=== PATIENT | male | born 1970 | race Caucasian/White ===

== ENCOUNTER 2016-09-13 20:15 | Emergency (ER) | payer MEDICARE, MEDICAID ==
[~2016-09-13] VITALS: Ht 185.4 cm; Wt 88.0 kg
[2016-09-13 21:38] LABS: HEMATOCRIT. 39.9 % (42.0-52.0); HEMOGLOBIN. 13.9 g/dL (14.0-18.0); MEAN CORPUSCULAR HEMOGLOBIN 35.5 pg (28.0-32.0); MEAN CORPUSCULAR HGB CONC 34.8 g/dL (31.0-37.0); RED BLOOD CELL COUNT 3.91 mill/uL (4.7-6.1); RED CELL DISTRIBUTION WIDTH 18.6 % (11.6-14.6); WHITE BLOOD COUNT 3.8 x1000/uL (4.5-11.0)
[2016-09-13 21:40] LABS: *AMPHETAMINES SCREEN URINE NEGATIVE (NEGATIVE); *BARBITURATES SCREEN URINE NEGATIVE (NEGATIVE); *BENZODIAZEPINES SCREEN URINE PRESUMTIVE POSITIVE (NEGATIVE); *COCAINE SCREEN URINE NEGATIVE (NEGATIVE); CANNABINOID URINE SCREEN NEGATIVE (NEGATIVE); ECSTASY MDMA SCREEN URINE NEGATIVE (NEGATIVE); METHADONE URINE SCREEN NEGATIVE (NEGATIVE); OPIATES URINE SCREEN NEGATIVE (NEGATIVE); PHENCYCLIDINE URINE SCREEN NEGATIVE (NEGATIVE)
[2016-09-13 21:44] LABS: DIFFERENTIAL COMMENT 1
[2016-09-13 21:48] LABS: ACETAMINOPHEN < 2 ug/mL (10-30); ANION GAP 15; CALCIUM 7.9 mg/dL (8.5-10.1); CARBON DIOXIDE 27 mEq/L (21-32); CHLORIDE 110 mEq/L (98-107); INDEX HEMOLYSI 1 (1-3); INDEX ICTERIC 3 (1-4); INDEX LIPEMIC 1 (1-3); UREA NITROGEN BLOOD 9 mg/dL (7-21); eGFR > 60 mL/min (>60)
[2016-09-13 21:53] LABS: ETHANOL BLOOD 332 mg/dL
[2016-09-13 22:16] LABS: MEAN PLATELET VOLUME 8.6 fl (7.4-10.4); PLATELET 28 x1000/uL (130-400)
[2016-09-13 22:26] LABS: ATYPICAL LYMPHOCYTES 3
[2016-09-13 22:27] LABS: ANISOCYTOSIS 1+; PLATELET ESTIMATE MARKEDLY DECREASED
[2016-09-13] MEDS ORDERED: SODIUM CHLORIDE 0.9% 1,000 ML IV ONE (23:15)
[2016-09-13] MEDS ORDERED: LORAZEPAM 2MG/ML CPJ IV ONE (23:15)
[2016-09-14 01:05] VITALS: BP 122/70
== END 2016-09-14 01:07 | disposition home or self-care (01) ==
LOC: ER 20:16
DX: F10.129 Alcohol abuse with intoxication, unspecified (principal); J45.909 Unspecified asthma, uncomplicated; K75.9 Inflammatory liver disease, unspecified; K74.60 Unspecified cirrhosis of liver; F17.200 Nicotine dependence, unspecified, uncomplicated
CPT/HCPCS: 36415; 80048; 80305; 80307; 80329; 85025; 96361; 96374; 99284; G0482; J2060; J7030

== ENCOUNTER 2017-04-28 13:27 | Emergency (ER) | payer MEDICARE, MEDICAID ==
[~2017-04-28] VITALS: Ht 175.3 cm; Wt 81.0 kg
[2017-04-28 13:35] VITALS: BP 116/84
== END 2017-04-28 17:50 | disposition left against medical advice (07) ==
LOC: ER 13:32
DX: R06.02 Shortness of breath (principal); Z53.21 Procedure and treatment not carried out due to patient leaving prior to being seen by health care provider

== ENCOUNTER 2019-04-14 20:04 | Inpatient (IN) | payer MEDICARE, MEDICAID ==
[~2019-04-14] VITALS: Ht 172.7 cm; Wt 53.2 kg
[2019-04-14] MEDS ORDERED: SODIUM CHLORIDE 0.9% 1,000 ML IV ONE (20:28)
[2019-04-14 21:24] LABS: BG BASE EXCESS -8.2 mmol/L (-2.0-2.0); BG CARBOXYHEMOGLOBIN 3.4 % (0.5-1.5); BG DEOXYHEMOGLOBIN 8.6 % (0.0-5.0); BG FRACTION INSPIRED OXYGEN 21; BG METHEMOGLOBIN 0.2 % (0.0-1.5); BG OXYGEN SATURATION 91.1 % (92.0-98.5); BG OXYHEMOGLOBIN 87.8 % (94.0-97.0); BG PCO2 29.1 mmHg (35.0-45.0); BG PH 7.357 (7.350-7.450); BG PO2 64.6 mmHg (75.0-100.0); BG SAMPLE SITE RIGHT RADIAL; BG TOTAL HEMOGLOBIN 12.4 g/dL (12.0-18.0); BG VENT MODE ROOM AIR
[2019-04-14 21:54] LABS: HEMATOCRIT. 35.5 % (42.0-52.0); HEMOGLOBIN. 12.3 g/dL (14.0-18.0); MEAN CORPUSCULAR HEMOGLOBIN 41.5 pg (28.0-32.0); MEAN CORPUSCULAR VOLUME 120.4 fL (80.0-94.0); MEAN PLATELET VOLUME 8.7 fl (7.4-10.4); RED BLOOD CELL COUNT 2.95 mill/uL (4.7-6.1); RED CELL DISTRIBUTION WIDTH 17.1 % (11.6-14.6)
[2019-04-14 21:56] LABS: CHLORIDE 98 mEq/L (98-107)
[2019-04-14 22:00] LABS: ETHANOL BLOOD < 10 mg/dL; PLATELET 22 x1000/uL (130-400)
[2019-04-14 22:14] LABS: PLATELET ESTIMATE MARKEDLY DECREASED
[2019-04-14] MEDS ORDERED: MORPHINE SULFATE 4 MG/ML CPJ (NOT FOR IM USE) IV ONE (22:15)
[2019-04-14] MEDS ORDERED: ALBUMIN HUMAN 25GM/500ML (5%) IV ONE (22:45)
[2019-04-14] MEDS ORDERED: ONDANSETRON HCL 4MG/2ML INJ IV PRN (23:15)
[2019-04-14] MEDS ORDERED: LORAZEPAM 0.5MG TABLET PO PRN (23:15)
[2019-04-15] VITALS (10 sets, daily range): BP systolic 91–109; BP diastolic 53–67
[2019-04-15 01:10] LABS: PROTHROMBIN TIME > 100.0 sec (9.6-11.0)
[2019-04-15 01:15] LABS: INR > 10.0
[2019-04-15] MEDS: SODIUM CHLORIDE 0.9% 1,000 ML IV SCH (04:24)
[2019-04-15 06:30] LABS: BASOPHILS % 0.2 % (0.0-2.0); EOSINOPHILS % 0.1 % (0.0-5.0); HEMATOCRIT. 35.6 % (42.0-52.0); HEMOGLOBIN. 12.4 g/dL (14.0-18.0); LYMPHOCYTES % 9.9 % (20.0-50.0); MEAN CORPUSCULAR HEMOGLOBIN 41.9 pg (28.0-32.0); MEAN CORPUSCULAR VOLUME 120.5 fL (80.0-94.0); MEAN PLATELET VOLUME 7.9 fl (7.4-10.4); MONOCYTES % 13.3 % (2.0-8.0); NEUTROPHILS % 76.5 % (40.0-76.0); RED BLOOD CELL COUNT 2.96 mill/uL (4.7-6.1); RED CELL DISTRIBUTION WIDTH 17.3 % (11.6-14.6)
[2019-04-15 06:50] LABS: PLATELET 30 x1000/uL (130-400)
[2019-04-15 06:52] LABS: CHLORIDE 99 mEq/L (98-107)
[2019-04-15 06:58] LABS: PHOSPHORUS 2.7 mg/dL (2.5-4.9)
[2019-04-15 08:16] LABS: PLATELET ESTIMATE MARKEDLY DECREASED
[2019-04-15] MEDS: THIAMINE HCL 100MG TABLET PO SCH (08:35)
[2019-04-15] MEDS: FOLIC ACID 1MG TABLET PO SCH (08:35)
[2019-04-15] MEDS ORDERED: PHYTONADIONE 10MG/ML AMP SUBCUT NR (09:00)
[2019-04-15] MEDS ORDERED: MAGNESIUM 2 G PREMIX 50 ML IV NR (10:00)
[2019-04-15] MEDS ORDERED: PNEUMOCOCCAL 23-VAL P-SAC VAC 0.5 ML IM ONE (12:00)
[2019-04-15] MEDS ORDERED: INFLUENZA VIRUS VACCINE(AFLURIA) 0.5ML SYR IM ONE (12:00)
[2019-04-15] MEDS ORDERED: LACTULOSE 20G/30ML UDC PO NR (12:30)
[2019-04-15] MEDS: MIDODRINE HCL 5MG TABLET PO SCH ×2 (12:53→16:35)
[2019-04-15 14:01] LABS: CLARITY URINE CLOUDY (CLEAR); COLOR URINE ORANGE (YELLOW); KETONES URINE NEGATIVE (NEGATIVE); LEUKOCYTE ESTERASE URINE 1+ (NEGATIVE); NITRITE URINE POSITIVE (NEGATIVE); OCCULT BLOOD URINE 1+ (NEGATIVE); PH URINE 5.5 (4.5-8.0); PROTEIN URINE 2+ (NEGATIVE); SPECIFIC GRAVITY URINE 1.025 (1.005-1.030)
[2019-04-15 14:29] LABS: *AMPHETAMINES SCREEN URINE NEGATIVE (NEGATIVE); *BARBITURATES SCREEN URINE NEGATIVE (NEGATIVE); *BENZODIAZEPINES SCREEN URINE NEGATIVE (NEGATIVE); *COCAINE SCREEN URINE NEGATIVE (NEGATIVE); CANNABINOID URINE SCREEN PRESUMTIVE POSITIVE (NEGATIVE); METHADONE URINE SCREEN NEGATIVE (NEGATIVE); OPIATES URINE SCREEN PRESUMTIVE POSITIVE (NEGATIVE); PHENCYCLIDINE URINE SCREEN NEGATIVE (NEGATIVE)
[2019-04-15] MEDS: CEFTRIAXONE 1 G PREMIX 50 ML IV SCH (15:49)
[2019-04-16] VITALS (13 sets, daily range): BP systolic 89–107; BP diastolic 55–71
[2019-04-16] MEDS: SODIUM CHLORIDE 0.9% 1,000 ML IV SCH ×2 (00:58→23:44)
[2019-04-16 06:21] LABS: BASOPHILS % 1.4 % (0.0-2.0); EOSINOPHILS % 0.6 % (0.0-5.0); HEMATOCRIT. 32.7 % (42.0-52.0); HEMOGLOBIN. 11.3 g/dL (14.0-18.0); MEAN CORPUSCULAR HEMOGLOBIN 41.7 pg (28.0-32.0); MEAN CORPUSCULAR VOLUME 120.3 fL (80.0-94.0); MEAN PLATELET VOLUME 8.8 fl (7.4-10.4); MONOCYTES % 8.3 % (2.0-8.0); NEUTROPHILS % 53.7 % (40.0-76.0); RED BLOOD CELL COUNT 2.72 mill/uL (4.7-6.1); RED CELL DISTRIBUTION WIDTH 17.3 % (11.6-14.6)
[2019-04-16 06:44] LABS: CHLORIDE 97 mEq/L (98-107)
[2019-04-16 07:09] LABS: PLATELET 11 x1000/uL (130-400)
[2019-04-16] MEDS ORDERED: PHYTONADIONE 10MG/ML AMP SUBCUT NR (09:00)
[2019-04-16] MEDS: THIAMINE HCL 100MG TABLET PO SCH (09:41)
[2019-04-16] MEDS: MIDODRINE HCL 5MG TABLET PO SCH ×3 (09:41→18:32)
[2019-04-16] MEDS: FOLIC ACID 1MG TABLET PO SCH (09:42)
[2019-04-16 11:11] LABS: INR 3.1; PROTHROMBIN TIME 30.8 sec (9.6-11.0)
[2019-04-16] MEDS ORDERED: ALBUMIN HUMAN 12.5GM/50ML (25%) IV NR (13:30)
[2019-04-16] MEDS: TRAMADOL 50MG TABLET PO PRN (13:35)
[2019-04-16] MEDS: CEFTRIAXONE 1 G PREMIX 50 ML IV SCH (14:00)
[2019-04-16 20:17] LABS: HEPATITIS B SURFACE ANTIGEN NEGATIVE
[2019-04-16 20:47] LABS: HEPATITIS A AB IGM NEGATIVE (NEGATIVE)
[2019-04-17] VITALS: BP 94/57
[2019-04-17 04:00] VITALS: BP 95/57
[2019-04-17 08:00] VITALS: BP 88/58
[2019-04-17] MEDS ORDERED: PHYTONADIONE 10MG/ML AMP SUBCUT NR (09:00)
[2019-04-17] MEDS: FOLIC ACID 1MG TABLET PO SCH (09:01)
[2019-04-17] MEDS: MIDODRINE HCL 5MG TABLET PO SCH ×3 (09:01→18:28)
[2019-04-17] MEDS: THIAMINE HCL 100MG TABLET PO SCH (09:02)
[2019-04-17 12:00] VITALS: BP 94/97
[2019-04-17 12:25] LABS: HEMATOCRIT. 29.4 % (42.0-52.0); HEMOGLOBIN. 10.2 g/dL (14.0-18.0); MEAN CORPUSCULAR VOLUME 120.9 fL (80.0-94.0); RED BLOOD CELL COUNT 2.43 mill/uL (4.7-6.1); RED CELL DISTRIBUTION WIDTH 17.8 % (11.6-14.6)
[2019-04-17 12:28] LABS: CHLORIDE 98 mEq/L (98-107)
[2019-04-17 12:29] LABS: PLATELET 45 x1000/uL (130-400)
[2019-04-17 13:12] LABS: PLATELET ESTIMATE MARKEDLY DECREASED
[2019-04-17] MEDS: CEFTRIAXONE 1 G PREMIX 50 ML IV SCH (13:19)
[2019-04-17 13:50] LABS: INR 2.3; PROTHROMBIN TIME 23.2 sec (9.6-11.0)
[2019-04-17 16:00] VITALS: BP 99/51
[2019-04-17 20:00] VITALS: BP 92/56
[2019-04-17] MEDS: SODIUM CHLORIDE 0.9% 1,000 ML IV SCH (20:30)
[2019-04-17 22:18] LABS: TOTAL IRON BINDING CAPACITY 224 ug/dL (250-450)
[2019-04-17 22:52] LABS: SODIUM URINE RANDOM < 5 mEq/L
[2019-04-18] VITALS (12 sets, daily range): BP systolic 89–120; BP diastolic 49–82
[2019-04-18] MEDS: THIAMINE HCL 100MG TABLET PO SCH (09:14)
[2019-04-18] MEDS: FOLIC ACID 1MG TABLET PO SCH (09:14)
[2019-04-18] MEDS: MIDODRINE HCL 5MG TABLET PO SCH ×3 (09:14→17:39)
[2019-04-18] MEDS: MORPHINE SULFATE 2 MG/ML CPJ (NOT FOR IM USE) IV PRN (09:15)
[2019-04-18 10:22] LABS: HEMOGLOBIN. 9.7 g/dL (14.0-18.0); MEAN CORPUSCULAR HEMOGLOBIN 42.3 pg (28.0-32.0); MEAN CORPUSCULAR VOLUME 121.6 fL (80.0-94.0); MEAN PLATELET VOLUME 9.1 fl (7.4-10.4); RED CELL DISTRIBUTION WIDTH 18.1 % (11.6-14.6)
[2019-04-18 10:24] LABS: INR 2.5; PROTHROMBIN TIME 25.1 sec (9.6-11.0)
[2019-04-18 10:27] LABS: PLATELET 45 x1000/uL (130-400)
[2019-04-18 10:33] LABS: CHLORIDE 97 mEq/L (98-107)
[2019-04-18] MEDS: CEFTRIAXONE 1 G PREMIX 50 ML IV SCH (14:57)
[2019-04-18] MEDS ORDERED: SODIUM CHLORIDE 3% 500ML IV SOLN IV ONE (15:00)
[2019-04-18] MEDS: SODIUM CHLORIDE 0.9% 1,000 ML IV SCH (15:27)
[2019-04-18] MEDS ORDERED: SODIUM CHLORIDE 3% 500 ML IV NR (18:00)
[2019-04-18 19:02] LABS: INR 2.2; PROTHROMBIN TIME 21.6 sec (9.6-11.0)
[2019-04-18 19:53] LABS: PLATELET ESTIMATE MARKEDLY DECREASED
[2019-04-19] VITALS (15 sets, daily range): BP systolic 92–106; BP diastolic 50–61
[2019-04-19] MEDS: MORPHINE SULFATE 2 MG/ML CPJ (NOT FOR IM USE) IV PRN (01:42)
[2019-04-19] MEDS: FOLIC ACID 1MG TABLET PO SCH (09:58)
[2019-04-19] MEDS: THIAMINE HCL 100MG TABLET PO SCH (09:58)
[2019-04-19] MEDS: HYDROCODONE/ACETAMINOPHEN 5/325MG TABLET PO PRN ×2 (09:59→17:50)
[2019-04-19] MEDS: MIDODRINE HCL 5MG TABLET PO SCH ×3 (09:59→17:50)
[2019-04-19 11:38] LABS: CHLORIDE 99 mEq/L (98-107)
[2019-04-19 11:42] LABS: INR 2.3; PROTHROMBIN TIME 22.8 sec (9.6-11.0)
[2019-04-19 11:57] LABS: HEMOGLOBIN. 9.2 g/dL (14.0-18.0); MEAN CORPUSCULAR HEMOGLOBIN 43.5 pg (28.0-32.0); MEAN CORPUSCULAR VOLUME 122.9 fL (80.0-94.0); RED BLOOD CELL COUNT 2.11 mill/uL (4.7-6.1); RED CELL DISTRIBUTION WIDTH 18.6 % (11.6-14.6)
[2019-04-19 12:08] LABS: PLATELET 49 x1000/uL (130-400)
[2019-04-19] MEDS: CEFTRIAXONE 1 G PREMIX 50 ML IV SCH (20:40)
[2019-04-19] MEDS: SODIUM CHLORIDE 0.9% 1,000 ML IV SCH (20:40)
[2019-04-19 22:03] LABS: INR 2.2; PROTHROMBIN TIME 21.6 sec (9.6-11.0)
[2019-04-20] VITALS (23 sets, daily range): BP systolic 80–118; BP diastolic 45–60
[2019-04-20] MEDS: SODIUM CHLORIDE 0.9% 1,000 ML IV SCH ×3 (00:19→14:47)
[2019-04-20] MEDS: TRAMADOL 50MG TABLET PO PRN ×2 (00:33→16:08)
[2019-04-20 04:46] LABS: NUCLEATED RED BLOOD CELLS 1 /100 WBC
[2019-04-20 04:47] LABS: PLATELET ESTIMATE MARKEDLY DECREASED
[2019-04-20 08:05] LABS: CHLORIDE 99 mEq/L (98-107)
[2019-04-20 08:19] LABS: HEMATOCRIT. 26.5 % (42.0-52.0); MEAN CORPUSCULAR HEMOGLOBIN 42.5 pg (28.0-32.0); MEAN CORPUSCULAR VOLUME 124.7 fL (80.0-94.0); MEAN PLATELET VOLUME 8.8 fl (7.4-10.4); PLATELET 74 x1000/uL (130-400); RED BLOOD CELL COUNT 2.13 mill/uL (4.7-6.1); RED CELL DISTRIBUTION WIDTH 19.2 % (11.6-14.6)
[2019-04-20] MEDS: THIAMINE HCL 100MG TABLET PO SCH (08:31)
[2019-04-20] MEDS: FOLIC ACID 1MG TABLET PO SCH (08:32)
[2019-04-20] MEDS: MIDODRINE HCL 5MG TABLET PO SCH ×3 (08:34→16:09)
[2019-04-20] MEDS ORDERED: PHYTONADIONE 10MG/ML AMP SUBCUT NR (11:00)
[2019-04-20 11:50] LABS: NUCLEATED RED BLOOD CELLS 2 /100 WBC; PLATELET ESTIMATE DECREASED
[2019-04-20 20:20] LABS: INR 2.1; PROTHROMBIN TIME 20.6 sec (9.6-11.0)
[2019-04-20] MEDS: CEFTRIAXONE 1 G PREMIX 50 ML IV SCH (20:38)
[2019-04-21] VITALS (33 sets, daily range): BP systolic 75–109; BP diastolic 41–68
[2019-04-21] MEDS: TRAMADOL 50MG TABLET PO PRN (01:07)
[2019-04-21] MEDS: THIAMINE HCL 100MG TABLET PO SCH (08:39)
[2019-04-21] MEDS: MIDODRINE HCL 5MG TABLET PO SCH ×3 (08:39→17:03)
[2019-04-21] MEDS: FOLIC ACID 1MG TABLET PO SCH (08:39)
[2019-04-21] MEDS: FUROSEMIDE 100MG/10ML VIAL IVP SCH ×2 (13:14→17:03)
[2019-04-21] MEDS: LACTULOSE 20G/30ML UDC PO SCH ×2 (13:16→21:15)
[2019-04-21] MEDS ORDERED: LIDOCAINE HCL 1% 20ML VIAL (Pyxis) INJ ONE (13:33)
[2019-04-21] MEDS: NOREPINEPHRINE 8 MG in DEXT 5% WATER 242 ML IV PRN (16:00)
[2019-04-21] MEDS: PHENYLEPHRINE 20 MG in DEXT 5% WATER 248 ML IV PRN (16:01)
[2019-04-21 17:26] LABS: EOSINOPHILS % 0.9 % (0.0-5.0); HEMATOCRIT. 27.7 % (42.0-52.0); HEMOGLOBIN. 9.6 g/dL (14.0-18.0); LYMPHOCYTES % 19.2 % (20.0-50.0); MEAN CORPUSCULAR HEMOGLOBIN 43.1 pg (28.0-32.0); MEAN CORPUSCULAR VOLUME 123.8 fL (80.0-94.0); MEAN PLATELET VOLUME 8.8 fl (7.4-10.4); MONOCYTES % 9.3 % (2.0-8.0); NEUTROPHILS % 69.6 % (40.0-76.0); RED BLOOD CELL COUNT 2.24 mill/uL (4.7-6.1); RED CELL DISTRIBUTION WIDTH 20.5 % (11.6-14.6)
[2019-04-21 17:45] LABS: PLATELET 42 x1000/uL (130-400)
[2019-04-21 18:08] LABS: PLATELET ESTIMATE MARKEDLY DECREASED
[2019-04-21 19:07] LABS: INR 2.5; PROTHROMBIN TIME 24.6 sec (9.6-11.0)
[2019-04-21 20:22] LABS: CHLORIDE 98 mEq/L (98-107)
[2019-04-21] MEDS: CEFTRIAXONE 1 G PREMIX 50 ML IV SCH (21:42)
[2019-04-22] VITALS (118 sets, daily range): BP systolic 39–134; BP diastolic 22–122
[2019-04-22] MEDS: LACTULOSE 20G/30ML UDC PO SCH ×3 (05:46→22:20)
[2019-04-22 06:00] LABS: CHLORIDE 99 mEq/L (98-107)
[2019-04-22 06:05] LABS: HEMATOCRIT. 27.5 % (42.0-52.0); HEMOGLOBIN. 9.3 g/dL (14.0-18.0); MEAN CORPUSCULAR VOLUME 126.9 fL (80.0-94.0); RED BLOOD CELL COUNT 2.17 mill/uL (4.7-6.1); RED CELL DISTRIBUTION WIDTH 21.2 % (11.6-14.6)
[2019-04-22 06:22] LABS: INR 2.6; PROTHROMBIN TIME 25.6 sec (9.6-11.0)
[2019-04-22] MEDS: FUROSEMIDE 100MG/10ML VIAL IVP SCH ×2 (08:33→18:17)
[2019-04-22] MEDS: THIAMINE HCL 100MG TABLET PO SCH (08:34)
[2019-04-22] MEDS: FOLIC ACID 1MG TABLET PO SCH (08:34)
[2019-04-22] MEDS: MIDODRINE HCL 5MG TABLET PO SCH ×3 (09:10→18:19)
[2019-04-22 09:20] LABS: PLATELET ESTIMATE DECREASED
[2019-04-22 09:24] LABS: MEAN PLATELET VOLUME 9.5 fl (7.4-10.4); PLATELET 44 x1000/uL (130-400)
[2019-04-22] MEDS ORDERED: PHYTONADIONE 10MG/ML AMP SUBCUT NR (10:19)
[2019-04-22] MEDS: PANTOPRAZOLE SODIUM 40 MG/VIAL IV SCH (14:07)
[2019-04-22] MEDS: NOREPINEPHRINE 8 MG in DEXT 5% WATER 242 ML IV PRN (22:20)
[2019-04-23] VITALS (98 sets, daily range): BP systolic 77–115; BP diastolic 24–73
[2019-04-23 05:41] LABS: HEMATOCRIT. 23.7 % (42.0-52.0); HEMOGLOBIN. 8.3 g/dL (14.0-18.0); MEAN CORPUSCULAR HEMOGLOBIN 43.4 pg (28.0-32.0); MEAN PLATELET VOLUME 8.4 fl (7.4-10.4); RED BLOOD CELL COUNT 1.91 mill/uL (4.7-6.1); RED CELL DISTRIBUTION WIDTH 21.6 % (11.6-14.6)
[2019-04-23 06:05] LABS: INR 2.3; PROTHROMBIN TIME 22.7 sec (9.6-11.0)
[2019-04-23] MEDS: LACTULOSE 20G/30ML UDC PO SCH ×3 (06:07→20:58)
[2019-04-23] MEDS: MORPHINE SULFATE 2 MG/ML CPJ (NOT FOR IM USE) IV PRN (06:23)
[2019-04-23 06:55] LABS: PLATELET 37 x1000/uL (130-400)
[2019-04-23] MEDS: FUROSEMIDE 100MG/10ML VIAL IVP SCH ×2 (09:00→18:05)
[2019-04-23] MEDS: PANTOPRAZOLE SODIUM 40 MG/VIAL IV SCH (09:34)
[2019-04-23] MEDS: FOLIC ACID 1MG TABLET PO SCH (09:34)
[2019-04-23] MEDS: THIAMINE HCL 100MG TABLET PO SCH (09:34)
[2019-04-23] MEDS: MIDODRINE HCL 5MG TABLET PO SCH ×3 (09:39→18:06)
[2019-04-23 10:56] LABS: NUCLEATED RED BLOOD CELLS 1 /100 WBC
[2019-04-23 10:57] LABS: PLATELET ESTIMATE MARKEDLY DECREASED
[2019-04-23] MEDS: NOREPINEPHRINE 16 MG in DEXT 5% WATER 242 ML IV PRN (22:15)
[2019-04-24] VITALS (98 sets, daily range): BP systolic 72–118; BP diastolic 24–72
[2019-04-24] MEDS: PHENYLEPHRINE 20 MG in DEXT 5% WATER 248 ML IV PRN (01:40)
[2019-04-24] MEDS: MORPHINE SULFATE 2 MG/ML CPJ (NOT FOR IM USE) IV PRN ×3 (02:32→16:09)
[2019-04-24] MEDS ORDERED: PHENYLEPHRINE 80 MG in DEXT 5% WATER 492 ML IV PRN (04:15)
[2019-04-24] MEDS: PHENYLEPHRINE 80 MG in DEXT 5% WATER 492 ML IV PRN ×3 (04:36→23:12)
[2019-04-24] MEDS: LACTULOSE 20G/30ML UDC PO SCH ×3 (05:11→23:12)
[2019-04-24 06:16] LABS: HEMATOCRIT. 25.9 % (42.0-52.0); MEAN CORPUSCULAR HEMOGLOBIN 43.3 pg (28.0-32.0); MEAN CORPUSCULAR VOLUME 124.5 fL (80.0-94.0); MEAN PLATELET VOLUME 8.8 fl (7.4-10.4); RED BLOOD CELL COUNT 2.08 mill/uL (4.7-6.1); RED CELL DISTRIBUTION WIDTH 21.9 % (11.6-14.6)
[2019-04-24 06:27] LABS: INR 2.4; PROTHROMBIN TIME 24.1 sec (9.6-11.0)
[2019-04-24 06:46] LABS: PLATELET 41 x1000/uL (130-400)
[2019-04-24] MEDS ORDERED: ALBUMIN HUMAN 25GM/100ML (25%) IV NR (07:45)
[2019-04-24] MEDS ORDERED: PHYTONADIONE 10MG/ML AMP SUBCUT NR (08:16)
[2019-04-24] MEDS: FUROSEMIDE 100MG/10ML VIAL IVP SCH ×2 (08:42→18:34)
[2019-04-24] MEDS: PANTOPRAZOLE SODIUM 40 MG/VIAL IV SCH (08:42)
[2019-04-24] MEDS: THIAMINE HCL 100MG TABLET PO SCH (08:43)
[2019-04-24] MEDS: MIDODRINE HCL 5MG TABLET PO SCH ×3 (08:43→18:33)
[2019-04-24] MEDS: FOLIC ACID 1MG TABLET PO SCH (08:43)
[2019-04-24 09:06] LABS: NUCLEATED RED BLOOD CELLS 2 /100 WBC
[2019-04-24 09:23] LABS: PLATELET ESTIMATE MARKEDLY DECREASED
[2019-04-24] MEDS: NOREPINEPHRINE 16 MG in DEXT 5% WATER 242 ML IV PRN (11:09)
[2019-04-24 21:01] LABS: HEMOGLOBIN. 7.1 g/dL (14.0-18.0); MEAN CORPUSCULAR HEMOGLOBIN 42.9 pg (28.0-32.0); MEAN CORPUSCULAR VOLUME 123.6 fL (80.0-94.0); MEAN PLATELET VOLUME 8.8 fl (7.4-10.4); RED BLOOD CELL COUNT 1.65 mill/uL (4.7-6.1); RED CELL DISTRIBUTION WIDTH 21.3 % (11.6-14.6)
[2019-04-24 21:06] LABS: HEMATOCRIT. 20.4 % (42.0-52.0); PLATELET 45 x1000/uL (130-400)
[2019-04-24 22:08] LABS: PLATELET ESTIMATE MARKEDLY DECREASED
[2019-04-25] VITALS (165 sets, daily range): BP systolic 36–182; BP diastolic 17–152
[2019-04-25] MEDS: NOREPINEPHRINE 16 MG in DEXT 5% WATER 242 ML IV PRN ×2 (02:15→14:08)
[2019-04-25 06:28] LABS: CHLORIDE 99 mEq/L (98-107)
[2019-04-25 06:32] LABS: MEAN CORPUSCULAR HEMOGLOBIN 43.1 pg (28.0-32.0); MEAN PLATELET VOLUME 9.9 fl (7.4-10.4); PLATELET 55 x1000/uL (130-400); RED BLOOD CELL COUNT 1.61 mill/uL (4.7-6.1); RED CELL DISTRIBUTION WIDTH 21.9 % (11.6-14.6)
[2019-04-25] MEDS: LACTULOSE 20G/30ML UDC PO SCH (06:39)
[2019-04-25 07:22] LABS: INR 2.5; PROTHROMBIN TIME 24.9 sec (9.6-11.0)
[2019-04-25 08:15] LABS: HEMOGLOBIN. 6.9 g/dL (14.0-18.0)
[2019-04-25 08:16] LABS: HEMATOCRIT. 20.1 % (42.0-52.0)
[2019-04-25] MEDS ORDERED: PHYTONADIONE 10MG/ML AMP SUBCUT SCH (08:30)
[2019-04-25] MEDS ORDERED: LACTULOSE 20G/30ML UDC PO SCH (09:00)
[2019-04-25] MEDS: FUROSEMIDE 100MG/10ML VIAL IVP SCH ×2 (09:12→18:23)
[2019-04-25] MEDS: FOLIC ACID 1MG TABLET PO SCH (09:12)
[2019-04-25] MEDS: THIAMINE HCL 100MG TABLET PO SCH (09:13)
[2019-04-25] MEDS: PANTOPRAZOLE SODIUM 40 MG/VIAL IV SCH ×2 (09:13→21:02)
[2019-04-25] MEDS: PHENYLEPHRINE 80 MG in DEXT 5% WATER 492 ML IV PRN (09:15)
[2019-04-25] MEDS: MIDODRINE HCL 5MG TABLET PO SCH ×3 (09:17→21:21)
[2019-04-25] MEDS ORDERED: FOLIC ACID 1 MG, THIAMINE HCL 100 MG, MVI, ADULT NO.1 10 ML in DEXTROSE 5% WATER 1,000 ML IV ONE ×4 (13:00)
[2019-04-25] MEDS ORDERED: ALBUMIN HUMAN 25GM/100ML (25%) IV NR ×2 (15:00→16:00)
[2019-04-25] MEDS: VASOPRESSIN 10 UNIT in SODIUM CHLORIDE 0.9% 99.5 ML IV PRN ×2 (15:20→19:08)
[2019-04-25] MEDS ORDERED: SODIUM BICARBONATE 8.4% 1 MEQ/ML 50ML SYR IV ONE ×3 (16:12→23:42)
[2019-04-25] MEDS: EPINEPHRINE 1 MG in SODIUM CHLORIDE 0.9% 249 ML IV PRN ×2 (16:45→19:53)
[2019-04-25 17:06] LABS: BG CARBOXYHEMOGLOBIN 1.2 % (0.5-1.5); BG DEOXYHEMOGLOBIN 12.5 % (0.0-5.0); BG FRACTION INSPIRED OXYGEN 100; BG HCO3 ACT 11.9 mmol/L (22.0-26.0); BG METHEMOGLOBIN 0.3 % (0.0-1.5); BG OXYGEN SATURATION 87.3 % (92.0-98.5); BG PCO2 31.6 mmHg (35.0-45.0); BG PH 7.193 (7.350-7.450); BG PO2 59.3 mmHg (75.0-100.0); BG SAMPLE SITE RIGHT RADIAL; BG TIDAL VOLUME(mL) 600 mL; BG TOTAL HEMOGLOBIN 7.9 g/dL (12.0-18.0); BG VENT MODE VENT - A/C; BG VENT RATE 16 set
[2019-04-25] MEDS ORDERED: SODIUM CHLORIDE 0.9% 250 ML IV ONE (17:45)
[2019-04-25 17:51] LABS: PLATELET ESTIMATE MARKEDLY DECREASED
[2019-04-25] MEDS ORDERED: SODIUM BICARBONATE 8.4% 1 MEQ/ML 50ML SYR IV NR (18:00)
[2019-04-25] MEDS ORDERED: SODIUM BICARBONATE 150 MEQ in DEXT 5%/0.45% NACL 1000ML 850 ML IV SCH (19:00)
[2019-04-25 19:06] LABS: HEMATOCRIT 23.7 % (42.0-52.0); HEMOGLOBIN 8.3 g/dL (14.0-18.0); MEAN CORPUSCULAR VOLUME 117.8 fL (80.0-94.0); RED BLOOD CELL COUNT 2.01 mill/uL (4.7-6.1); RED CELL DISTRIBUTION WIDTH 25.4 % (11.6-14.6)
[2019-04-25 19:11] LABS: CHLORIDE 100 mEq/L (98-107)
[2019-04-25 19:16] LABS: PLATELET 31 x1000/uL (130-400)
[2019-04-25 19:17] LABS: PHOSPHORUS 5.4 mg/dL (2.5-4.9)
[2019-04-25 19:20] LABS: INR 3.2; PROTHROMBIN TIME 31.5 sec (9.6-11.0)
[2019-04-25] MEDS ORDERED: NOREPINEPHRINE 32 MG in DEXT 5% WATER 468 ML IV PRN (20:56)
[2019-04-25] MEDS ORDERED: EPINEPHRINE 4 MG in SODIUM CHLORIDE 0.9% 246 ML IV PRN (20:56)
[2019-04-25] MEDS ORDERED: LORAZEPAM 2MG/ML CPJ ONE (23:53)
[2019-04-26] MEDS ORDERED: SODIUM BICARBONATE 8.4% 1 MEQ/ML 50ML SYR IV ONE (00:03)
== END 2019-04-26 00:02 | disposition expired | DRG 871 ==
LOC: ER 20:04 → 8WST 22:41 → EDBEDREQ 22:43 → EDBEDREQTM 22:43 → EDBEDREQSVC 22:43 → SUPCPDRO 23:12 → CANRESERV 04-15 01:04 → ENRESERV 04-15 01:04 → EDBEDREQTM 04-15 01:11 → EDBEDREQDT 04-15 01:11 → EDBEDREQSVC 04-15 01:11 → ENRESERV 04-15 01:28 → MICUSO 04-21 12:04
PROVIDERS: ADMIT Internal Medicine Nephrology; ATTEND Internal Medicine Nephrology
PROC: 30233K1 Transfusion of Nonautologous Frozen Plasma into Peripheral Vein, Percutaneous Approach (ICD-10-PCS; principal; 2019-04-15)
PROC: 30233R1 Transfusion of Nonautologous Platelets into Peripheral Vein, Percutaneous Approach (ICD-10-PCS; 2019-04-16)
PROC: 06HN33Z Insertion of Infusion Device into Left Femoral Vein, Percutaneous Approach (ICD-10-PCS; 2019-04-21)
PROC: B54CZZA Ultrasonography of Left Lower Extremity Veins, Guidance (ICD-10-PCS; 2019-04-21)
PROC: 5A1D70Z Performance of Urinary Filtration, Intermittent, Less than 6 Hours Per Day (ICD-10-PCS; 2019-04-23)
PROC: 30233N1 Transfusion of Nonautologous Red Blood Cells into Peripheral Vein, Percutaneous Approach (ICD-10-PCS; 2019-04-25)
PROC: 5A1D70Z Performance of Urinary Filtration, Intermittent, Less than 6 Hours Per Day (ICD-10-PCS; 2019-04-25)
PROC: 5A1935Z Respiratory Ventilation, Less than 24 Consecutive Hours (ICD-10-PCS; 2019-04-25)
PROC: 0BH17EZ Insertion of Endotracheal Airway into Trachea, Via Natural or Artificial Opening (ICD-10-PCS; 2019-04-25)
PROC: 5A12012 Performance of Cardiac Output, Single, Manual (ICD-10-PCS; 2019-04-25)
PROC: 5A12012 Performance of Cardiac Output, Single, Manual (ICD-10-PCS; 2019-04-26)
DX: A41.9 Sepsis, unspecified organism (principal); E43 Unspecified severe protein-calorie malnutrition; S72.011A Unspecified intracapsular fracture of right femur, initial encounter for closed fracture; G93.41 Metabolic encephalopathy; J96.00 Acute respiratory failure, unspecified whether with hypoxia or hypercapnia; N18.6 End stage renal disease; K72.00 Acute and subacute hepatic failure without coma; N39.0 Urinary tract infection, site not specified; D61.818 Other pancytopenia; D68.9 Coagulation defect, unspecified; E87.1 Hypo-osmolality and hyponatremia; E87.2 Acidosis; J84.9 Interstitial pulmonary disease, unspecified; K76.6 Portal hypertension; I47.1 Supraventricular tachycardia; J91.8 Pleural effusion in other conditions classified elsewhere; K92.2 Gastrointestinal hemorrhage, unspecified; E72.20 Disorder of urea cycle metabolism, unspecified; Z68.1 Body mass index [BMI] 19.9 or less, adult; W19.XXXA Unspecified fall, initial encounter; E83.42 Hypomagnesemia; K70.31 Alcoholic cirrhosis of liver with ascites; E87.70 Fluid overload, unspecified; F10.10 Alcohol abuse, uncomplicated; I46.9 Cardiac arrest, cause unspecified; I51.7 Cardiomegaly; R16.1 Splenomegaly, not elsewhere classified; F12.90 Cannabis use, unspecified, uncomplicated; F11.90 Opioid use, unspecified, uncomplicated; K72.90 Hepatic failure, unspecified without coma; I95.9 Hypotension, unspecified; J45.909 Unspecified asthma, uncomplicated; K80.20 Calculus of gallbladder without cholecystitis without obstruction; Z91.81 History of falling; Z99.2 Dependence on renal dialysis; Y93.89 Activity, other specified; Y92.89 Other specified places as the place of occurrence of the external cause; Y99.8 Other external cause status
CPT/HCPCS: 36415; 36600; 71045; 72170; 73552; 74176; 76937; 78278; 80048; 80076; 80305; 80320; 81003; 82105; 82140; 82375; 82570; 82728; 82805; 82962; 83540; 83550; 83605; 83735; 83880; 84100; 84300; 84484; 85027; 85049; 85384; 86705; 86709; 86803; 86850; 86900; 86920; 86927; 86945; 87340; 93005; 93306; 93970; 99291; A9560; C1752; C1769; C1893; C9113; J0696; J1940; J2060; J2270; J2370; J3411; J3430; J3475; J3490; J7030; J7040; J7050; J7060; J7070; P9016; P9017; P9034; P9041; P9047; G0480